=== PATIENT | male | born 2000 | race Hispanic/Latino ===

== ENCOUNTER 2024-01-10 10:51 | Emergency (ER) | payer SELFPAY ==
[2024-01-10] MEDS ORDERED: Lidocaine 1% w/Epinephrine 1:100K 20 ML VIAL ONE (11:49)
[2024-01-10] MEDS ORDERED: Bacitracin 1 PK ONE (12:42)
== END 2024-01-10 13:05 | disposition home or self-care (01) ==
LOC: ERS 10:51
DX: S81.812A Laceration without foreign body, left lower leg, initial encounter (principal); W26.8XXA Contact with other sharp object(s), not elsewhere classified, initial encounter; Y93.89 Activity, other specified; Y92.69 Other specified industrial and construction area as the place of occurrence of the external cause
CPT/HCPCS: 12002; 99282

== ENCOUNTER 2024-01-17 16:17 | Emergency (ER) | payer SELFPAY ==
[2024-01-17] MEDS ORDERED: Bacitracin 1 PK ONE (16:47)
== END 2024-01-17 17:02 | disposition home or self-care (01) ==
LOC: ERS 16:17
DX: S81.812D Laceration without foreign body, left lower leg, subsequent encounter (principal); W26.8XXD Contact with other sharp object(s), not elsewhere classified, subsequent encounter